=== PATIENT | male | born 1955 | race African-American/Black ===

== ENCOUNTER 2017-02-01 12:23 | Emergency (ER) | payer MEDICARE, OTHER ==
[2017-02-01 11:16] LABS: BASOPHILS 0.3 %; BASOPHILS ABSOLUTE 0.02 10/3/uL (0.0-0.16); EOSINOPHILS 4.8 %; EOSINOPHILS ABSOLUTE 0.28 10/3/uL (0.0-0.53); ER CBC TAT 0 Hrs 07 Mins; HEMATOCRIT 31.2 % (40.0-51.0); HEMOGLOBIN 9.9 g/dL (13.6-17.8); IMMATURE GRANULOCYTES 0.2 %; IMMATURE GRANULOCYTES ABSOLUTE 0.01 10/3/uL (0.0-0.11); LYMPHOCYTES 11.8 %; LYMPHOCYTES ABSOLUTE 0.69 10/3/uL (0.67-4.30); MEAN CORPUS HGB CONC 31.7 g/dL (32.0-36.0); MEAN CORPUSCULAR HEMOGLOB 28.5 pg (26.0-34.0); MONOCYTES 9.2 %; MONOCYTES ABSOLUTE 0.54 10/3/uL (0.21-1.20); NEUTROPHILS 73.7 %; PLATELET COUNT 114 10/3/uL (150-400); RBC DISTRIBUTION WIDTH 16.4 % (12.0-16.0); RED CELL COUNT 3.47 10/6/uL (4.7-6.1); WHITE BLOOD CELLS 5.8 10/3/uL (4.5-10.5)
[2017-02-01 11:18] LABS: MANUAL DIFF NO %; MEAN CORPUSCULAR VOLUME 89.9 fL (80-100)
[2017-02-01 11:25] LABS: INTERNATIONAL NORMAL RATI 1.4 UNITS (-); PARTIAL THROMBO TIME 34.4 SEC (22.5-37.2); PROTIME (NOT ORD) 16.6 SEC (12.0-14.5)
[2017-02-01 11:30] LABS: BUN (BLOOD UREA NITROGEN) 13 MG/DL (6-23); CHLORIDE, SERUM 100 MMOL/L (96-112); CO2 (CARBON DIOXIDE) 30 MMOL/L (24-34); GLUCOSE, SERUM 108 MG/DL (60-99); POTASSIUM, SERUM 4.1 MMOL/L (3.5-5.3); SODIUM, SERUM 139 MMOL/L (135-148)
[2017-02-01 11:33] LABS: CALCIUM, SERUM 9.1 MG/DL (8.5-10.4); CHEST PAIN PROFILE TAT 0 Hrs 24 Mins; CREATININE 3.41 MG/DL (0.70-1.30); GFR AFRICAN AMERICAN 21 ML/MIN (>=60); GFR NON AFRICAN AMERICAN 18 ML/MIN (>=60); TROPONIN I 0.07 NG/ML (<0.05)
[~2017-02-01 12:23] MED LIST: ADALAT CC30 MG PO; AFEDITAB30 MG PO; AMB10 PO; APRES10B PO; APRES50 PO; ASAB PO; ATV.5 PO; B COMPLETE PO; BEN25 PO; CAT1 PO; CAT2 PO; CIALIS10 MG PO; COREG12 PO; COREG25 PO; COUMADIN10 MG PO; CRESTOR20 MG PO; CYANO1000T PO; DSS PO; DULCOLAX STOOL100 MG PO; ENDOCET1 TAB PO; EPOGEN10000 MG/M IV; EPOGEN4000 MG/ML IV; FERRLECIT IV; FERROUS SULF324 MG PO; FOLIC ACI; HECTOROL4 MCG/2 ML IV; HYDRALAZINE100 MG PO; INTEGRA F; IRON; IRON TABLETS PO; IRON325 MG PO; L20 PO; L40 PO; LEVAQUIN750 MG PO; LIPITOR20 PO; LIPITOR40 PO; LISINOPRIL40 MG PO; LONITEN10 PO; LONITEN2.5 PO; LYRICA25 PO; LYRICA50 PO; MEG40 PO; MEGACEUDL PO; MELATONIN5 M1 PO; NEO-SYNEPHRI0.05 % NAS; NEO-SYNEPHRINE15 ML NAS; NEPHRO PO; NEPHRO-VITE PO; NEUR100 PO; NICODERM C21 MG/241 TOP; NITROQUICK0.4 MG SL; NORCO1 TA1 PO; NORV5 PO; NTG150 SL; PAX10 PO; PEGASYS180 MCG/M SC; PEP20 PO; PR25 PO; PRILO PO; PRILOSEC40 MG PO; PRIN20 PO; PROTONIX PO; PT TAKES NO MEDS; RENA-VITE PO; RENAL SFTGLS1 MG OR; RENVELA800 MG PO; RIBASPHERE200 M1 PO; SENSIPAR30 M1 PO; SENSIPAR60 MG PO; SEROQUEL25 PO; SEROQUEL50 MG PO; SEVE800T PO; SLEEP AID PO; SODBICAR10 PO; SPS SUSPENSION PO; TRAZ50 PO; V5 PO; VALIUM10 MG PO; VICODINTAB PO; VITAMIN B-121000 MC1 SL; VITAMIN B-625 MG PO; VITAMIN D1000 UNI1 PO; VITAMIN D31000 UNIT PO; Vitamin D3 PO; ZESTRIL20 MG PO; [UNRECOGNIZED DRUG - OTHER]
[2017-02-07] MEDS ORDERED: PRILOSEC40 MG PO (08:37)
[2017-02-07] MEDS ORDERED: SENSIPAR60 MG PO (08:38)
[2017-02-07] MEDS ORDERED: TRAZ50 PO (08:38)
[2017-02-08] MEDS ORDERED: ASAB PO (08:16)
[2017-02-08] MEDS ORDERED: RENAL SFTGLS1 MG PO (08:17)
[2017-02-08] MEDS ORDERED: LIPITOR20 PO (08:18)
[2017-02-08] MEDS ORDERED: PRIN20 PO ×2 (08:18→08:19)
[2017-02-13] MEDS ORDERED: ROCALTROL0.25 MCG PO (15:14)
[2017-06-12] MEDS ORDERED: JANTOVEN1 MG PO (12:19)
[2017-06-12] MEDS ORDERED: DSS PO (12:19)
[2017-06-12] MEDS ORDERED: KRISTALOSE20 GM PO (12:20)
[2017-06-12] MEDS ORDERED: PROTONIX PO (12:20)
[2017-06-12] MEDS ORDERED: PR25 PO (12:20)
[2017-06-13] MEDS ORDERED: TUMSROLL PO (05:55)
== END 2017-02-01 20:27 | disposition home or self-care (01) ==
LOC: ER 12:23
PROVIDERS: Emergency Medicine
DX: I49.9 Cardiac arrhythmia, unspecified (principal); J44.9 Chronic obstructive pulmonary disease, unspecified; N18.9 Chronic kidney disease, unspecified; I12.9 Hypertensive chronic kidney disease with stage 1 through stage 4 chronic kidney disease, or unspecified chronic kidney disease; E11.9 Type 2 diabetes mellitus without complications; Z87.891 Personal history of nicotine dependence; Z79.82 Long term (current) use of aspirin; Z79.899 Other long term (current) drug therapy
CPT/HCPCS: 80048; 83735; 84484; 85025; 85610; 85730; 93005; 96374; 99285

== ENCOUNTER 2017-02-21 07:18 | Observation (INO) | payer MEDICARE, OTHER, SELFPAY ==
--- NOTE | ~2017-02-21 | OP ---
Record Of Operation [facility] [address] [place]. [address] NAME: BARBARA SHOOK : 51 STATUS : DIS Jyoti PAT#: [id number] AGE: 61 ADM/REG DATE : 02/21/17 MR#: [id number] REPORT SERV DATE: 02/22/17 DICTATED BY: CLARK RICHMOND DATE: 02/22/17 REPORT STATUS : Draft TRANSCRIBED BY: MODL DATE: 02/22/17 DATE OF PROCEDURE: 02/22/2017 PREOPERATIVE DIAGNOSES: 1. Multiple carious teeth. 2. Periodontally involved teeth. 3. Pre mitral valve replacement extractions. POSTOPERATIVE DIAGNOSES: 1. Multiple carious teeth. 2. Periodontally involved teeth. 3. Pre mitral valve replacement extractions. PROCEDURES PERFORMED: Extraction of carious teeth numbers 22, 23, 24, 25, 26, 27, 28, and 31. SURGEON: Clark Richmond D.D.S. ANESTHESIA: GETA with oral DAVID. INDICATIONS: This is a 61-year-old male, who was admitted through the cardiac services for history of hypertension, coronary artery disease, end-stage renal disease, and mitral regurgitation. The patient is on a list to have a mitral valve replacement in the near future. Prior to him receiving this valve, the Cardiac Services requested he have all of his infected carious teeth removed. PROCEDURE IN DETAIL: After informed consent was given, the patient was taken to the OR at [facility] where he underwent a general anesthetic via an orotracheal intubation. The patient was prepped and draped in normal sterile fashion for procedure of this type. Approximately 2 g of Ancef were delivered intravenously along with 8 mg of Decadron. The patient had approximately 10 mL of 1% lidocaine with 1:100,000 epinephrine injected into the areas of extraction. A 15 blade was used to make a flap in the mucosa. It was reflected back. The teeth numbers 22 through 28 and #31 were all extracted with forceps. The bone was trimmed with a rongeur. A bone filed with a bone rasp. All the extraction sites had Surgicel packed inside of them and the mucosa was closed with 3-0 chromic gut suture in a running, interlocking fashion. Estimated blood losswas 10 mL. The patient tolerated the procedure well. He had an orogastric tube placed and removed to remove any stomach contents. Moist packing was placed on both sides of his mouth. The patient was extubated and taken to recovery room in stable condition. GEGE/MARIANNA Clark Richmond D.D.S. Record Of [address] [address] NAME: BARBARA SHOOK NICOLE : 51 STATUS : DIS Jyoti PAT#: [id number] AGE: 61 ADM/REG DATE : 02/21/17 MR#: [id number] REPORT SERV DATE: 02/22/17 DICTATED BY: CLARK RICMHOND DATE: 02/22/17 REPORT STATUS : Draft TRANSCRIBED BY: MARIANNA DATE: 02/22/17 / [id number] CC: MD Celestina Ho M.D.
--- NOTE | ~2017-02-21 | HP ---
History And Physical [place] [id number] [place]. [address] NAME: BABRARA SHOOK : 51 STATUS : ADM IN [facility]#: [id number] AGE: 61 ADM/REG DATE : 02/21/17 MR#: [id number] REPORT SERV DATE: 02/21/17 DICTATED BY: PARISA FITZPATRICK DATE: 02/21/17 REPORT STATUS : Draft TRANSCRIBED BY: MODL DATE: 02/21/17 DATE OF ADMISSION: 02/21/2017 REASON FOR ADMISSION: Symptomatic mitral regurgitation. HISTORY OF PRESENT ILLNESS: This is a pleasant 61-year-old male, who has a history of ventricular tachycardia, status post AICD in 11/2015, also with a history of coronary artery disease and nonischemic congestive cardiomyopathy with nonrheumatic mitral regurgitation, hyperlipidemia, hypertension, and type 2 diabetes mellitus. He also has end-stage renal disease, on hemodialysis on Saturday, Saturday, and Saturday. He was initially referred to us by Dr. Osmel Ashford for symptomatic mitral regurgitation and known coronary artery disease. He was seen in the clinic by Dr. Tyler Watt on 01/29/2017 and preparations were made to have him scheduled for mitral valve repair and replacement surgery. He was brought in today to have this surgery done and was noted to have multiple dental caries and possible abscess tooth with complaint of right-sided jaw pain. His surgery was canceled and the patient will be admitted for evaluation of dental caries and possible abscessed teeth. He will need these extracted prior to proceeding with mitral valve surgery. PAST MEDICAL HISTORY: Ventricular tachycardia, status post cardiac defibrillator, coronary artery disease, nonocclusive per catheterization in 11/2005, nonischemic congestive cardiomyopathy with ejection fraction around 33% per echocardiogram in 09/2016, non- rheumatic mitral regurgitation, severe per echo in 09/2016, hyperlipidemia, hypertension, hypertensive cardiomyopathy, type 2 diabetes mellitus, end-stage renal disease, GERD, renal osteodystrophy, and anemia. SOCIAL HISTORY: He is . Denies any history of alcohol abuse, use of illicit drugs, or tobacco abuse. FAMILY HISTORY: Reviewed and noncontributory. ALLERGIES: NO KNOWN DRUG ALLERGIES. HOME MEDICATIONS: Coreg 25 mg p.o. twice a day, hydralazine 50 mg p.o. twice a day, Megace 5 mL every day, Neurontin 100 mg p.o. at bedtime, Norvasc 5 mg p.o. daily, Prilosec 40 mg per day, Renvela 1600 mg p.o. with meals, Sensipar 60 mg p.o. twice a day with food, sodium bicarbonate 650 mg as directed, trazodone 50 mg p.o. one to three times per day. REVIEW OF SYSTEMS: A 10-point review of systems was obtained and is negative other than HPI. PHYSICAL EXAMINATION: VITAL SIGNS: From today, temperature 98.6, heart rate 67, blood pressure 138/72, respiratory rate 16, O2 saturation 96% on 2L. GENERAL: Pleasant, ill-appearing, male, in no acute distress. History And Physical [address] [address] NAME: BARBARA SHOOK : 51 STATUS : ADM IN [facility]#: [id number] AGE: 61 ADM/REG DATE : 02/21/17 MR#: [id number] REPORT SERV DATE: 02/21/17 DICTATED BY: PARISA FITZPATRICK DATE: 02/21/17 REPORT STATUS : Draft TRANSCRIBED BY: MARIANNA DATE: 02/21/17 NEURO: Alert and oriented x3. Pupils are equal, round, reactive to light and accommodation. He has equal strength bilaterally of upper extremities and lower extremities. PSYCH: He is calm, demeanor, but a little irritated due to the fact that he is now having to be admitted and surgery is being canceled. Otherwise, normal psych assessment. HEENT: Head is normocephalic, atraumatic. Sclerae clear. Nose is midline with no abnormality. Ears midline with no abnormality. He has multiple missing teeth and rotted teeth with dental caries. There is an area that is concerning for abscess in the lower portion of his right mouth. NECK: Supple. No thyromegaly or lymphadenopathy. LUNGS: Clear to auscultation bilaterally with normal effort. CARDIAC: S1, S2. No murmurs, rubs, or gallops. EXTREMITIES: Free of cyanosis, clubbing, or edema. He has a fistula in his right upper extremity with positive bruit. LABORATORY DATA: From today, sodium 138, potassium 4.4, chloride 100, bicarbonate 23, BUN 26, creatinine 6.2, glucose 79. He had an MRSA swab by PCR, which was positive. ASSESSMENT/PLAN: This 61-year-old, male with symptomatic mitral regurgitation, calculated as severe mitral regurgitation per echocardiogram in 09/2016. He also has nonocclusive coronary artery disease, nonischemic cardiomyopathy, and end-stage renal disease on hemodialysis. He was brought in today to undergo mitral valve repair or replacement, found to have multiple dental caries, and possible abscessed tooth. He will need to be evaluated by oral surgeon and undergo tooth extraction prior to proceeding with mitral valve surgery. We will admit him and notify our Renal at his admission. We will also notify Cardiology and ask Dr. Malik to evaluate him for possible dental extraction. We appreciate the help with the consultants. We will likely proceed with mitral valve surgery sometime next week. JACKIE/MARIANNA Parisa Fitzpatrick NP / [id number] CC: MD Celestina Ho M.D.
--- NOTE | ~2017-02-21 | CN ---
Consultation Report [facility] [address] [place]. [address] NAME: BARBARA SHOOK : 51 STATUS : ADM IN PAT#: [id number] AGE: 61 ADM/REG DATE : 02/21/17 MR#: [id number] REPORT SERV DATE: 02/21/17 DICTATED BY: SANDRA ARCOS DATE: 02/21/17 REPORT STATUS : Draft TRANSCRIBED BY: MODL DATE: 02/21/17 NEPHROLOGY CONSULTATION DATE OF CONSULTATION: 02/21/2017 INDICATION FOR CONSULTATION: End-stage renal disease management. HISTORY OF PRESENT ILLNESS: Mr. Shook is a 61-year-old male on chronic hemodialysis on Saturday, Saturday, and Saturday at [facility] by right upper extremity AV fistula. He is currently admitted for mitral valve replacement, but the surgery has been postponed to arrange for full-mouth dental extraction due to poor oral hygiene and caries. There was a concern that he will cede his valve if this is not addressed prior to surgery. He otherwise indicates he is having no problems. PAST MEDICAL HISTORY: 1. End-stage renal disease, dialyzing Saturday, Saturday, and Saturday at [facility] by right upper extremity AVF. 2. Severe mitral regurgitation. 3. Chronic systolic and diastolic CHF. Ejection fraction 20% to 30%. 4. History of hepatitis C. 5. Type 2 diabetes mellitus. 6. Chronic obstructive pulmonary disease. 7. Anemia. 8. Hypertension. 9. History of ventricular tachycardia, status post AICD. 10.Nonobstructive coronary artery disease in 2013, cardiac cath. 11.History of colon polyps. 12.Hyperlipidemia. 13.Peripheral neuropathy. SOCIAL HISTORY: The patient is . He has chronic tobacco use. Indicates he is not smoking now. He is a retired solid waste truck driver. No use of alcohol. Denies illicit drugs. ALLERGIES: NONE KNOWN. MEDICATIONS: Amlodipine, Catapres, Coreg, Colace, Neurontin, Prinivil, Megace, Prilosec, Paxil, Renvela, sodium bicarbonate, and Desyrel. REVIEW OF SYSTEMS: HEENT: No change in visual acuity. No epistaxis. No otic infection. PULMONARY: Denies shortness of breath, cough, or hemoptysis. CARDIAC: No chest pain. No lower extremity edema. GASTROINTESTINAL: No nausea, vomiting, or melena. GENITOURINARY: No gross hematuria. Consultation Report [facility] [address] [place]. [address] NAME: BARBARA SHOOK : 51 STATUS : ADM IN PAT#: [id number] AGE: 61 ADM/REG DATE : 02/21/17 MR#: [id number] REPORT SERV DATE: 02/21/17 DICTATED BY: SANDRA ARCOS DATE: 02/21/17 REPORT STATUS : Draft TRANSCRIBED BY: MARIANNA DATE: 02/21/17 MUSCULOSKELETAL: Pain in back and knees. INTEGUMENT: Bumps on the back. Prior history of scalp Staph infection. NEUROLOGIC: Positive for peripheral neuropathy. Otherwise negative for 12-point review of systems. PHYSICAL EXAMINATION: GENERAL: Pleasant male, alert, and cooperative. VITAL SIGNS: Blood pressure 132/66, temperature 98.4, respiratory rate 19, and pulse 65. HEENT: Eyes: No scleral icterus. Pupils are equal and reactive to light. Extraocular movement intact. Nares patent, no lesions. Throat: No injection. Mucous membranes moist. NECK: No thyromegaly, masses, or bruits. CHEST/LUNGS: Few late crackles posteriorly. No dullness. CARDIAC: Regular rate and rhythm. 2/6 systolic ejection murmur. No gallop. No rub. ABDOMEN: Supple. Normoactive bowel sounds. Nontender. No hepatosplenomegaly. GENITOURINARY/RECTAL: Not performed. EXTREMITIES: No lower extremity edema. No calf tenderness. DERMIS: There are some skin lesions on his back. No other rash. NEUROLOGIC: Cranial nerves intact. No lateralizing weakness. MUSCULOSKELETAL: No deformity. IMPRESSION: 1. Diffuse severe mitral regurgitation. Surgery to be postponed due to need for extraction of teeth. Has upper dentures. Will need lower extraction. 2. End-stage renal disease, dialyzing Saturday, Saturday, and Saturday at [facility] via right upper extremity AVF. 3. Chronic systolic and diastolic congestive heart failure with ejection fraction of 20% to 30%. 4. Hepatitis C. 5. Type 2 diabetes mellitus. 6. Chronic obstructive pulmonary disease. 7. With history of past tobacco abuse. 8. Anemia. 9. Hypertension. 10.History of ventricular tachycardia, status post AICD. 11.Colon polyps. 12.Hyperlipidemia. 13.Peripheral neuropathy. 14.History of nonobstructive coronary artery disease. PLAN: 1. Labs. 2. Hemodialysis . Consultation Report [place] [id number] [place] [address] NAME: BARBARA SHOOK : 51 STATUS : ADM IN [facility]#: [id number] AGE: 61 ADM/REG DATE : 02/21/17 MR#: [id number] REPORT SERV DATE: 02/21/17 DICTATED BY: SANDRA ARCOS DATE: 02/21/17 REPORT STATUS : Draft TRANSCRIBED BY: MARIANNA DATE: 02/21/17 CARMEL/MARIANNA Sandra Arcos M.D. / [id number] CC: MD Celestina Ho M.D.
--- NOTE | ~2017-02-21 | CN ---
Consultation Report [facility] [address] [place]. [address] NAME: BARBARA SHOOK : 51 STATUS : ADM IN PAT#: [id number] AGE: 61 ADM/REG DATE : 02/21/17 MR#: [id number] REPORT SERV DATE: 02/21/17 DICTATED BY: KASSANDRA SOLANO DATE: 02/21/17 REPORT STATUS : Draft TRANSCRIBED BY: MODL DATE: 02/21/17 CARDIOLOGY CONSULT DATE OF CONSULTATION: REFERING REASON: Resuming Cardiology care for anticipated mitral surgery. HISTORY OF PRESENT ILLNESS: This is a pleasant 61-year-old gentleman with a complex past medical history, well known to Dr. Osmel Ashford from [facility], who is pending mitral valve surgery for severe mitral valve regurgitation, mixed mitral valve disease. Surgery was initially planned for today, but it has been cancelled while he was found to have tooth ache and severe cavities in his teeth. He is awaiting first treatment and possible surgery by Dr. Espinal, oromaxillary surgeon. The mitral valve surgery had been postponed until next week. The patient has known CAD with last coronary arteriogram in 11/2015, which revealed moderate left main coronary artery of about 40% to 50% with moderate diffuse disease. He has cardiomyopathy with EF 35%, status post AICD in place for ventricular tachycardia without any recent discharges. He has been previously followed by cardiologists at [place]. He has mixed mitral valve disease with severe mitral valve regurgitation which has been confirmed by [facility] in December [address] Egan. He is also on chronic hemodialysis for end-stage renal disease. The patient has a poor functional performance status. He is walking with a cane. Has some chronic dyspnea on exertion, but denies any chest pain, palpitation, syncope, or lower extremity edema. He is on hemodialysis. He continues to smoke few cigarettes a day. REVIEW OF SYSTEMS: Rest of review of system is negative. PAST MEDICAL HISTORY: 1. Coronary artery disease. His last coronary arteriogram in 11/2015 with moderate disease. 2. Status post AICD placement in November 2015 without any recent discharges and cardiomyopathy with EF 35%. 3. Severe mitral valve regurgitation with a pending surgery. 4. Mixed disease. 5. Hyperlipidemia. 6. Hypertension. 7. Diabetes mellitus. 8. End-stage renal disease, on hemodialysis. 9. Gastroesophageal reflux disease. SOCIAL HISTORY: The patient is . He is retired. He is walking with a cane. Still smokes two to three cigarettes a day for many years. Denies drinking alcohol or using street drugs. Consultation Report [place] [id number] [place]. [address] NAME: BARBARA SHOOK : 51 STATUS : ADM IN PAT#: [id number] AGE: 61 ADM/REG DATE : 02/21/17 MR#: [id number] REPORT SERV DATE: 02/21/17 DICTATED BY: KASSANDRA SOLANO DATE: 02/21/17 REPORT STATUS : Draft TRANSCRIBED BY: MARIANNA DATE: 02/21/17 FAMILY HISTORY: Negative for sudden cardiac or premature coronary artery disease in the family. HOME MEDICATIONS: Amlodipine 5 mg once a day, aspirin 81 mg once a day, atorvastatin 20 mg once a day, calcitriol 0.25 mcg once a day, Coreg 25 mg twice a day, Sensipar 60 mg twice a day, Neurontin 100 mg once a day, hydralazine 50 mg twice a day, lisinopril 20 mg twice a day, Megace, omeprazole 40 mg once a day, Renvela 1600 mg three times a day, sodium bicarbonate twice a day 650 mg, trazodone 100 mg once a day. ALLERGIES: NO KNOWN DRUG ALLERGIES. PHYSICAL EXAMINATION: GEN - No acute distress. VITAL SIGNS: Blood pressure 132/65, heart rate 65 regular. HEENT - Pupils reactive to light and accommodation. Moist mucosa membrane. NECK - No JVD. Normal carotid upstroke. No carotid bruits. LUNGS - Decreased breath sounds bibasilar, but no crackles. COR - Normal S1, S2. No S3 or S4. No significant rub or murmurs. ABD - Obese, distended, and nontender. AICD in place noted in his chest. EXT - Lower extremity decreased pedal pulses bilaterally, but no edema. SKIN - Warm with normal turgor. MS - No kyphosis. NEURO/PSY - Alert and oriented. Nonfocal. LAB DATA: Creatinine of 6.2, BUN 26. CBC is pending. Chest x-ray on 02/19/2017 revealed cardiomegaly with AICD in place with some mild venous congestion. On monitor, he remains in normal sinus rhythm. ASSESSMENT AND PLAN: 1. Toothache with reported teeth cavities with pending teeth procedure, possible surgery. 2. Severe mitral valve regurgitation of mixed mitral valve disease with a pending mitral valve surgery. 3. Cardiomyopathy with EF of 35%. 4. ICD in place. 5. History of coronary artery disease, currently stable the patient is stable from cardiovascular standpoint. He will have evaluation by Dr. Espinal, oromaxillary surgeon tomorrow with hemodialysis tomorrow. Likely early next week, he will undergo mitral valve surgery by Dr. Watt. We will continue current cardiac medication. Dr. Osmel Ashford will see the patient tomorrow. JAIME/MARIANNA Kassandra Edmondson Consultation Report [address] [address] NAME: BARBARA SHOOK : 51 STATUS : ADM IN PAT#: [id number] AGE: 61 ADM/REG DATE : 02/21/17 MR#: [id number] REPORT SERV DATE: 02/21/17 DICTATED BY: KASSANDRA SOLANO DATE: 02/21/17 REPORT STATUS : Draft TRANSCRIBED BY: MARIANNA DATE: 02/21/17 Wilfredo Solano / [id number] CC: MD Celestina Ho M.D.
[~2017-02-21 07:18] MED LIST changes: +RENAL SFTGLS1 MG PO; +ROCALTROL0.25 MCG PO
[2017-02-21 08:49] LABS: A/G RATIO 0.9 (0.7-1.9); ALKALINE PHOSPHATASE 114 U/L (45-117); BUN (BLOOD UREA NITROGEN) 26 MG/DL (6-23); CALCIUM, SERUM 8.9 MG/DL (8.5-10.4); CHLORIDE, SERUM 100 MMOL/L (96-112); CO2 (CARBON DIOXIDE) 23 MMOL/L (24-34); CREATININE 6.23 MG/DL (0.70-1.30); GFR AFRICAN AMERICAN 10 ML/MIN (>=60); GFR NON AFRICAN AMERICAN 9 ML/MIN (>=60); GLOBULIN 4.3 G/DL (2.5-4.1); GLUCOSE, SERUM 79 MG/DL (60-99); IRON BINDING CAPACITY 409 MCG/DL (250-450); POTASSIUM, SERUM 4.4 MMOL/L (3.5-5.3); SGOT(AST) 11 U/L (5-40); SGPT(ALT) 10 U/L (5-65); SODIUM, SERUM 138 MMOL/L (135-148); TOTAL BILIRUBIN 0.9 MG/DL (0-1.2); TOTAL PROTEIN 8.3 G/DL (6.0-8.5)
[2017-02-22 05:14] LABS: BASOPHILS 0.4 %; BASOPHILS ABSOLUTE 0.02 10/3/uL (0.0-0.16); EOSINOPHILS 5.7 %; EOSINOPHILS ABSOLUTE 0.32 10/3/uL (0.0-0.53); HEMOGLOBIN 10.2 g/dL (13.6-17.8); IMMATURE GRANULOCYTES 0.2 %; IMMATURE GRANULOCYTES ABSOLUTE 0.01 10/3/uL (0.0-0.11); LYMPHOCYTES 19.5 %; MEAN CORPUS HGB CONC 32.1 g/dL (32.0-36.0); MEAN CORPUSCULAR HEMOGLOB 29.5 pg (26.0-34.0); MONOCYTES 8.7 %; MONOCYTES ABSOLUTE 0.49 10/3/uL (0.21-1.20); NEUTROPHILS 65.5 %; PLATELET COUNT 102 10/3/uL (150-400); RBC DISTRIBUTION WIDTH 17.2 % (12.0-16.0); RED CELL COUNT 3.46 10/6/uL (4.7-6.1); WHITE BLOOD CELLS 5.6 10/3/uL (4.5-10.5)
[2017-02-22 05:18] LABS: HEMATOCRIT 31.8 % (40.0-51.0); MANUAL DIFF NO %; MEAN CORPUSCULAR VOLUME 91.9 fL (80-100)
[2017-02-22 05:27] LABS: ALBUMIN 3.4 G/DL (3.5-5.0); CALCIUM, SERUM 8.2 MG/DL (8.5-10.4); CHLORIDE, SERUM 102 MMOL/L (96-112); CO2 (CARBON DIOXIDE) 23 MMOL/L (24-34); GLUCOSE, SERUM 92 MG/DL (60-99); POTASSIUM, SERUM 4.8 MMOL/L (3.5-5.3); SODIUM, SERUM 138 MMOL/L (135-148)
[2017-02-22 05:32] LABS: BUN (BLOOD UREA NITROGEN) 39 MG/DL (6-23); CREATININE 8.08 MG/DL (0.70-1.30); GFR AFRICAN AMERICAN 7 ML/MIN (>=60); GFR NON AFRICAN AMERICAN 6 ML/MIN (>=60); PHOSPHORUS, SERUM 5.5 MG/DL (2.5-4.5)
[2017-02-22] MEDS ORDERED: AMOXIL500 MG PO (18:21)
[2017-02-22] MEDS ORDERED: PERCOCET 10/3251 TAB PO (18:22)
[2017-02-22] MEDS ORDERED: HABIT21 TOP (18:22)
[2017-06-12] MEDS ORDERED: DSS PO (12:19)
[2017-06-12] MEDS ORDERED: JANTOVEN1 MG PO (12:19)
[2017-06-12] MEDS ORDERED: PROTONIX PO (12:20)
[2017-06-12] MEDS ORDERED: KRISTALOSE20 GM PO (12:20)
[2017-06-12] MEDS ORDERED: PR25 PO (12:20)
[2017-06-13] MEDS ORDERED: TUMSROLL PO (05:55)
== END 2017-02-22 19:28 | disposition home or self-care (01) ==
LOC: SDC/OF 07:18 → 5NO 15:25
PROVIDERS: Internal Medicine Nephrology; Oral & Maxillofacial Surgery; Thoracic Surgery (Cardiothoracic Vascular Surgery)
PROC: 0CDXXZ1 Extraction of Lower Tooth, Multiple, External Approach (ICD-10-PCS; principal; 2017-02-22 13:45)
DX: K02.9 Dental caries, unspecified (principal); I13.2 Hypertensive heart and chronic kidney disease with heart failure and with stage 5 chronic kidney disease, or end stage renal disease; E11.22 Type 2 diabetes mellitus with diabetic chronic kidney disease; N18.6 End stage renal disease; I34.0 Nonrheumatic mitral (valve) insufficiency; I25.10 Atherosclerotic heart disease of native coronary artery without angina pectoris; E78.2 Mixed hyperlipidemia; I50.22 Chronic systolic (congestive) heart failure; I47.2 Ventricular tachycardia; K21.9 Gastro-esophageal reflux disease without esophagitis; I49.8 Other specified cardiac arrhythmias; N25.0 Renal osteodystrophy; D64.9 Anemia, unspecified; F17.210 Nicotine dependence, cigarettes, uncomplicated; Z79.899 Other long term (current) drug therapy; Z79.82 Long term (current) use of aspirin
CPT/HCPCS: 71020; 80053; 80069; 82962; 83550; 83735; 85025; 86920; 87641; 94640; A9270-GY; G0257; G0378; J0690; J1170; J2250; J2405; J2710; J3010; J3370; P9045; P9047

== ENCOUNTER 2017-03-07 04:41 | Inpatient (IN) | payer MEDICARE, OTHER ==
--- NOTE | ~2017-03-07 | DS ---
Discharge Summary [facility] [address] [place]. [address] NAME: BARBARA SHOOK : 51 STATUS : DIS IN PAT#: [id number] AGE: 61 ADM/REG DATE : 03/07/17 MR#: [id number] REPORT SERV DATE: 03/26/17 DICTATED BY: TYLER SANCHES DATE: 03/25/17 REPORT STATUS : Draft TRANSCRIBED BY: MODSerafin DATE: 03/25/17 Data Collection from hospitalization DISCHARGE DIAGNOSES: 1. Mitral regurgitation, status post mitral valve repair. 2. End-stage renal disease. 3. Type 2 diabetes mellitus. 4. Hypertension. 5. Hyperlipidemia. CONSULTATIONS: 1. Fabian Isidro M.D. 2. Gavino Damon MD. PROCEDURES PERFORMED: Median sternotomy, extracorporeal circulation, mitral valve replacement with 31 mm Epic Biocor mitral valve, transesophageal echocardiogram, left atrial appendage ligation with 45 mm atrial clip, rigid sternal fixation with Spaces 2 Host SternaLock Woody plating system, Prevena placement, 03/07/2017. PATHOLOGY: Heart valve, anterior mitral valve leaflet - myxoid change. DISCHARGE MEDICATIONS: Cordarone 200 mg twice a day, aspirin 81 mg daily, Lipitor 40 mg at bedtime, Rocaltrol 0.25 mcg daily, Coreg 6.25 mg twice a day, Neurontin 100 mg at bedtime, Megace 10 mL daily as instructed, Prilosec 40 mg at bedtime, Percocet 10/325 one tablet every four hours as needed, Percocet 10/325 one tablet every eight hours as needed, Renvela 1600 mg three times a day with meals, sodium bicarb 650 mg twice a day, Desyrel 100 mg at bedtime. He was instructed not to continue Norvasc, hydralazine, SPS suspension, Sensipar, lisinopril or Amoxil. CONDITION AT DISCHARGE: Stable. DISPOSITION: The patient was discharged home to be followed by home health care on a low- sodium, low-cholesterol, renal-diabetic diet with no concentrated carbohydrates, and activities as instructed. He will follow up with Dr. Osmel Ashford on 03/22/[address] Tyler Sanches on 04/09/2017. HOSPITAL COURSE: This is a 61-year-old man who has a history of ventricular tachycardia and is status post AICD in November 2015. He also has a history of coronary artery disease and nonischemic congestive cardiomyopathy with nonrheumatic mitral regurgitation, hyperlipidemia, hypertension, and type 2 diabetes mellitus. He also has end-stage renal disease and undergoes hemodialysis on Mondays, Wednesdays, and Fridays. He had initially been referred by Dr. Osmel Ashford for symptomatic mitral regurgitation and coronary artery disease. He had been seen by me in the clinic on 01/29/2017, and preparations were made to have him scheduled for mitral valve repair and replacement surgery. He had been brought in on the to undergo this surgery and was found to have multiple dental caries and possible abscess tooth with complaints of right-sided jaw pain. His surgery is being canceled for evaluation of dental caries and possible abscessed teeth. He had undergone dental extractions and was allowed to convalesce and was brought back at this time to undergo Discharge Summary [place] [id number] [facility] [place]. [address] NAME: BARBARA SHOOK : 51 STATUS : DIS IN PAT#: [id number] AGE: 61 ADM/REG DATE : 03/07/17 MR#: [id number] REPORT SERV DATE: 03/26/17 DICTATED BY: TYLER SANCHES DATE: 03/25/17 REPORT STATUS : Draft TRANSCRIBED BY: MARIANNA DATE: 03/25/17 surgical intervention. He was admitted to the hospital for further evaluation and treatment. Upon admission, he was taken to the operating room where he underwent the above-mentioned procedure. He tolerated this well. There were no complications. On postop day #1, he said his pain was tolerable. He did have some nausea. Antiemetics were being given as needed. He was seen by Dr. Fabian Isidro. The patient had tolerated surgery well. He had no new complaints. Creatinine level was 7.50. Hemodialysis therapy was going to be performed. He was also seen by Dr. Gavino Damon. He denied shortness of breath. He had a decreased appetite. He had no other complaints. He was in a normal sinus rhythm. Aspirin was continued. On 03/09/2017, he developed atrial fibrillation with rapid ventricular response after hemodialysis. Amiodarone was being weaned. Heparin drip was started. He had no edema. He was at sitting in a chair and appeared comfortable. The next day, Levophed was being weaned. He had decreased breath sounds in the bases. He had some constipation and nausea but no vomiting. Kayexalate was given. Beta-diaz was held. He was currently in a normal sinus rhythm. He was off the amiodarone drip. On 03/11/2017, he looks good. He was still in atrial flutter. He was still on IV heparin. The next day, he was ambulating in the room. He had no chest pain. He was on fluid restriction for hyponatremia. IV heparin was stopped. INR level was elevated at 2.1. On the , he continued to do well. His Coumadin had been stopped. He complained of feeling weak and nauseated. INR level was 3.9. Over the next couple of days, we encouraged him to increase his mobility. He was in a normal sinus rhythm. Discharge planning was performed. On 03/15/2017, he continued to do well. He was seen on hemodialysis. He was ambulating more. He had no chest pain. Coumadin would be restarted when his INR level was less than or equal to 2. His INR level at this time was 3. Discharge instructions were given. Due to his improved and stable condition, he was discharged home to be followed by home health care with the above-stated instructions. Information collected by: Ileana Brooks I submit the above information as my discharge summary. TG/MODL Tyler Sanches MD / [id number] CC: MD Celestina Ho M.D. John Carter Hemphill, MD Ann H. Rybolt, M.D. Claude Galphin, M.D.
--- NOTE | ~2017-03-07 | OP ---
Record Of Operation [facility] [address]. [address] NAME: BARBARA SHOOK : 51 STATUS : ADM IN PAT#: [id number] AGE: 61 ADM/REG DATE : 03/07/17 MR#: [id number] REPORT SERV DATE: 03/07/17 DICTATED BY: TYLER SANCHES DATE: 03/07/17 REPORT STATUS : Draft TRANSCRIBED BY: MODL DATE: 03/07/17 DATE OF PROCEDURE: 03/07/2017 ATTENDING SURGEON: Tyler Sanches MD. EXERCISER: Ed Portillo. ANESTHESIOLOGIST: Albino Mckeon MD. PREOPERATIVE DIAGNOSES: 1. Severe mitral regurgitation with mixed mitral stenosis. 2. End-stage renal disease, on chronic dialysis. 3. Chronic systolic and diastolic congestive heart failure. 4. Diabetes mellitus type 2. 5. Chronic obstructive pulmonary disease. 6. Anemia. 7. Hypertension. 8. Hyperlipidemia. 9. Nonobstructive coronary artery disease. 10.Ventricular tachycardia. 11.Status post AICD. POSTOPERATIVE DIAGNOSES: 1. Severe mitral regurgitation with mixed mitral stenosis. 2. End-stage renal disease, on chronic dialysis. 3. Chronic systolic and diastolic congestive heart failure. 4. Diabetes mellitus type 2. 5. Chronic obstructive pulmonary disease. 6. Anemia. 7. Hypertension. 8. Hyperlipidemia. 9. Nonobstructive coronary artery disease. 10.Ventricular tachycardia. 11.Status post AICD. OPERATION PROCEDURE PERFORMED: 1. Median sternotomy. 2. Extracorporeal circulation. 3. Mitral valve replacement with 31 mm Epic Biocor mitral valve. 4. CHEYENNE. 5. Left atrial appendage ligation with 45 mm atrial clip. 6. Rigid sternal fixation with Biomet SternaLock Woody plating system. 7. Prevena placement. COMPLICATIONS: None tubes. Record Of Operation [facility] [address] [place]. [address] NAME: BARBARA SHOOK : 51 STATUS : ADM IN PAT#: [id number] AGE: 61 ADM/REG DATE : 03/07/17 MR#: [id number] REPORT SERV DATE: 03/07/17 DICTATED BY: TYLER SANCHES DATE: 03/07/17 REPORT STATUS : Draft TRANSCRIBED BY: MODL DATE: 03/07/17 TUBES AND DRAINS: 19 Moises to posterior pericardium, 32-Pashto straight, under the sternum V wires were placed. The patient has a pre-existing AICD. POSTOPERATIVE CONDITION: Critically stable to CVICU. The patient was weaned on epi and Milrinone. INTRAOPERATIVE FINDINGS: There was a calcified mitral anulus. The posterior leaflet of the mitral valve was partially calcified. The posterior leaflet was restricted and thickened. The anterior leaflet was thickened, I did not think that a valve repair would be suitable for this gentleman. The posterior leaflet and the subvalvular apparatus was preserved. The anterior leaflet was removed and some in that portion of the subvalvular apparatus was excised. There was difficult exposure. The heart was rotated leftward in his chest. The right and left atrium were extremely large. TRANSESOPHAGEAL ECHOCARDIOGRAPHY: Pre EF was approximately 30%. There was severe MR mixed with mitral stenosis postoperatively. The valve was well seated. There was preservation of his wall motion. INDICATIONS FOR PROCEDURE: Mr. Shook is a 61-year-old gentleman, with chronic dialysis, who has a mixed component of mitral stenosis and mitral regurgitation, who presents with chronic systolic and diastolic congestive heart failure, and symptoms consistent of severe mitral regurgitation. He was recently brought to the hospital for attempted mitral valve repair and was found to have rotten teeth, it was felt that he needed to have dental extraction, underwent dental extraction, and was allowed to convalesce from that, and then brought back for mitral valve repair. Risks, benefits, and alternatives were discussed with the patient including, but not limited to, bleeding, infection, stroke, , heart attack, need for future operation, all questions were answered. DETAILS OF PROCEDURE: The patient was brought to the operating room, placed supine on the operating room table. After satisfactory induction of general endotracheal anesthesia, was prepped and draped in usual sterile fashion. Median sternotomy was performed. Skin and subcu tissues were divided. Clavipectoral fascia was divided. The sternum was divided in the midline using a sternal saw. Hemostasis was obtained. The Breathitt sternal retractor was placed. Thymic tissue was divided in the midline up to the innominate vein. The pericardium was opened. A pericardial well was created. Systemic heparinization was achieved. Ascending aorta was cannulated through dual pursestring. Right atrial appendage was cannulated through a sternal pursestring. Antegrade root vent cardioplegia tack was placed. Cardiopulmonary bypass was initiated. After documentation of an adequate ACT, the heart was elevated, and the left atrial appendage was sized. It was sized to a 45 mm atrial clip. The clip was placed around the left atrial appendage and the clip was fired, appeared to be good resolution of the clip. Attention was then turned to the Sondergaard's groove, Sondergaard's groove was developed. The cross-clamp was brought up the heart was arrested with 2 L of cold crystalloid cardioplegia Custodiol solution. The left atriotomy was performed. Self-retaining was placed and the mitral valve was inspected with findings as dictated in the intraoperative findings. The decision was made to replace the valve, 20 pledgeted valve sutures were placed, positioned the valve in the intra annular position. The posterior leaflet was preserved. Anterior leaflet and subvalvular apparatus was Record Of Operation [facility] [address] [facility] [address] [facility] [place]. [address] NAME: BARBARA SHOOK : 51 STATUS : ADM IN [facility]#: [id number] AGE: 61 ADM/REG DATE : 03/07/17 MR#: [id number] REPORT SERV DATE: 03/07/17 DICTATED BY: TYLER SANCHES DATE: 03/07/17 REPORT STATUS : Draft TRANSCRIBED BY: MARIANNA DATE: 03/07/17 removed. After the sutures were placed. The valve was sized to a 31 mm Epic Biocor valve. The sutures were then placed through the sewing ring of the valve. The valve was lowered into position and anchored using 20 Cor-Knots. Edwards was placed across the valve to serve as LV vent and the left atriotomy is closed. The left atriotomy was closed in two layer 3-0 Prolene. De-airing maneuvers were performed and the cross-clamp was removed. Ventricular pacing wires were placed. The patient returned to sinus rhythm. He was able to be weaned from cardiopulmonary bypass without incident. After CHEYENNE demonstrated the valve was well seated and there was no perivalvular leak in prior to coming off bypass, the LV vent was removed and the anastomotic sutures were tied down and the antegrade root vent cardioplegia tack was removed, 4-0 Prolene was used to oversew of this. The patient was then weaned from cardiopulmonary bypass. Protamine was administered. Two units of FFP and six packs of platelets were administered as well. Hemostasis was obtained. All pursestrings were oversewn with 4-0 Prolene. All cannula sites were oversewn with 4-0 Prolene. The pericardium was loosely reapproximated over the RV and the ascending aorta. A 19-Pashto Moises was placed in the posterior pericardial space. A 32-Pashto chest tube was placed under the sternum. These were exteriorized and secured to the skin. The sternum was then reapproximated using eight stainless steel sternal wires. The pectoral flaps were raised to the edge of the sternum and 100 degree SternaLock Woody plate was placed on the body of the manubrium and two X plates were placed on the body of the sternum between the sternal wires. The clavipectoral fascia was reapproximated using running #1 StrataFix. The skin and subcutaneous tissues were closed. The subcutaneous tissues were closed using running #1 StrataFix. The skin closed using 2-0 Quill. Dry sterile dressings were placed. Prevena dressing was placed. The patient was transferred to CVICU in critical, stable condition. [facility]L Tyler Sanches MD / [id number] CC: Tyler aSnches MD
[~2017-03-07 04:41] MED LIST changes: +AMOXIL500 MG PO; +HABIT21 TOP; +PERCOCET 10/3251 TAB PO
[2017-03-07 07:12] LABS: INTERNATIONAL NORMAL RATI 1.2 UNITS (-); PROTIME (NOT ORD) 15.2 SEC (12.0-14.5)
[2017-03-07 07:20] LABS: A/G RATIO 0.8 (0.7-1.9); CHLORIDE, SERUM 97 MMOL/L (96-112); GLUCOSE, SERUM 87 MG/DL (60-99); SGPT(ALT) 7 U/L (5-65); SODIUM, SERUM 134 MMOL/L (135-148); TOTAL BILIRUBIN 1.1 MG/DL (0-1.2)
[2017-03-07 07:23] LABS: ALKALINE PHOSPHATASE 135 U/L (45-117); BUN (BLOOD UREA NITROGEN) 23 MG/DL (6-23); CALCIUM, SERUM 9.2 MG/DL (8.5-10.4); CO2 (CARBON DIOXIDE) 29 MMOL/L (24-34); CREATININE 7.01 MG/DL (0.70-1.30); GFR AFRICAN AMERICAN 9 ML/MIN (>=60); GFR NON AFRICAN AMERICAN 8 ML/MIN (>=60); POTASSIUM, SERUM 4.4 MMOL/L (3.5-5.3)
[2017-03-07 07:24] LABS: SGOT(AST) 20 U/L (5-40)
[2017-03-07 12:46] LABS: TEG - ANGLE 44.5 DEG (53-72); TEG - COAGULATION INDEX -9.2 (-3 TO 3); TEG - LY30 0.1 % (0-8); TEG - MAXIMUM AMPLITUDE 54.6 MM (50-70); TEG - RATE 15.2 MIN (5.0-10.0)
[2017-03-07 13:28] LABS: BE (BASE EXCESS) -3.4 MEQ/L (0 +/- 2.5); CARBOXYHEMOGLOBIN 1.2 % (0-3); HCO3 (ACTUAL BICARBONATE) 21.5 MEQ/L (23-27); HEMOBLOGIN CONTENT 10.9 G/DL (14-18); INSTRUMENT SERIAL # 11843; METHEMOGLOBIN 0.5 % (0-3); MODE SIMV; O2 CONTENT 15.3 VOL% (18-24); OPERATOR ID 35188; PCO2 (CO2 TENSION) 38 MMHG (35-45); PO2 (O2 TENSION) 188 MMHG (79-93); SAMPLE Arterial; TIDAL VOLUME 750 ML; pH 7.37 (7.37-7.43)
[2017-03-07 13:41] LABS: HEMOGLOBIN 9.8 g/dL (13.6-17.8); PLATELET COUNT 149 10/3/uL (150-400)
[2017-03-07 13:48] LABS: INTERNATIONAL NORMAL RATI 1.8 UNITS (-); PARTIAL THROMBO TIME 41.1 SEC (22.5-37.2)
[2017-03-07 13:51] LABS: PROTIME (NOT ORD) 20.4 SEC (12.0-14.5)
[2017-03-07 13:52] LABS: BUN (BLOOD UREA NITROGEN) 24 MG/DL (6-23); CALCIUM, SERUM 8.7 MG/DL (8.5-10.4); CHLORIDE, SERUM 100 MMOL/L (96-112); CO2 (CARBON DIOXIDE) 22 MMOL/L (24-34); GFR AFRICAN AMERICAN 9 ML/MIN (>=60); GFR NON AFRICAN AMERICAN 8 ML/MIN (>=60); GLUCOSE, SERUM 186 MG/DL (60-99); POTASSIUM, SERUM 4.9 MMOL/L (3.5-5.3); SODIUM, SERUM 135 MMOL/L (135-148)
[2017-03-07 14:11] LABS: FIBRINOGEN 300 MG/DL (230-462)
[2017-03-07 18:43] LABS: POTASSIUM, SERUM 4.7 MMOL/L (3.5-5.3)
[2017-03-07 18:47] LABS: HEMATOCRIT 28.8 % (40.0-51.0); HEMOGLOBIN 9.2 g/dL (13.6-17.8)
[2017-03-08 01:48] LABS: HEMATOCRIT 29.1 % (40.0-51.0); HEMOGLOBIN 9.4 g/dL (13.6-17.8)
[2017-03-08 04:51] LABS: HEMATOCRIT 30.1 % (40.0-51.0); HEMOGLOBIN 9.7 g/dL (13.6-17.8); MEAN CORPUS HGB CONC 32.2 g/dL (32.0-36.0); MEAN CORPUSCULAR VOLUME 89.9 fL (80-100); MEAN PLATELET VOLUME 9.9 fL (9.2-13.0); PLATELET COUNT 107 10/3/uL (150-400); RBC DISTRIBUTION WIDTH 16.8 % (12.0-16.0); RED CELL COUNT 3.35 10/6/uL (4.7-6.1)
[2017-03-08 05:00] LABS: CALCIUM, SERUM 8.7 MG/DL (8.5-10.4); CHLORIDE, SERUM 100 MMOL/L (96-112); CO2 (CARBON DIOXIDE) 18 MMOL/L (24-34); GFR AFRICAN AMERICAN 8 ML/MIN (>=60); GFR NON AFRICAN AMERICAN 7 ML/MIN (>=60); GLUCOSE, SERUM 102 MG/DL (60-99); POTASSIUM, SERUM 5.6 MMOL/L (3.5-5.3); SODIUM, SERUM 136 MMOL/L (135-148)
[2017-03-08 05:03] LABS: MANUAL DIFF YES %; WHITE BLOOD CELLS 10.7 10/3/uL (4.5-10.5)
[2017-03-08 05:07] LABS: BUN (BLOOD UREA NITROGEN) 49 MG/DL (6-23)
[2017-03-08 05:18] LABS: INTERNATIONAL NORMAL RATI 1.4 UNITS (-)
[2017-03-08 05:20] LABS: PROTIME (NOT ORD) 16.8 SEC (12.0-14.5)
[2017-03-08 05:38] LABS: ANISOCYTOSIS 1+ (5-10/OIF) (0-5/OIF); BAND NEUTROPHILS 1 %; BURR CELLS 1+ (3-10/OIF) (0-2/OIF); LYMPHOCYTES 7 %; LYMPHOCYTES ABSOLUTE (CALC) 0.75 10/3/uL (0.67-4.30); MONOCYTES 2 %; MONOCYTES ABSOLUTE (CALC) 0.21 10/3/uL (0.21-1.20); NEUTROPHILS ABSOLUTE (CALC) 9.74 10/3/uL (2.02-8.40); PLATELET ESTIMATE DEC (ADEQUATE); POIKILOCYTOSIS 1+ (5-10/OIF) (0-5/OIF); SEGMENTED NEUTROPHIL (0) 90 %; TOTAL NUCLEATED CELLS 100
[2017-03-08 09:46] LABS: BE (BASE EXCESS) -3.1 MEQ/L (0 +/- 2.5); DEVICE NC; HCO3 (ACTUAL BICARBONATE) 22.7 MEQ/L (23-27); HEMOBLOGIN CONTENT 10.3 G/DL (14-18); INSTRUMENT SERIAL # 11843; METHEMOGLOBIN 0.5 % (0-3); O2 CONTENT 13.2 VOL% (18-24); OPERATOR ID 35188; PCO2 (CO2 TENSION) 44 MMHG (35-45); PO2 (O2 TENSION) 72 MMHG (79-93); SAMPLE Arterial; pH 7.33 (7.37-7.43)
[2017-03-08 17:31] LABS: HEMATOCRIT 29.8 % (40.0-51.0); HEMOGLOBIN 9.9 g/dL (13.6-17.8)
[2017-03-08 17:40] LABS: POTASSIUM, SERUM 3.9 MMOL/L (3.5-5.3)
[2017-03-09 03:49] LABS: BASOPHILS 0.1 %; BASOPHILS ABSOLUTE 0.01 10/3/uL (0.0-0.16); EOSINOPHILS 0 %; HEMATOCRIT 29.4 % (40.0-51.0); HEMOGLOBIN 9.6 g/dL (13.6-17.8); IMMATURE GRANULOCYTES 0.5 %; IMMATURE GRANULOCYTES ABSOLUTE 0.06 10/3/uL (0.0-0.11); LYMPHOCYTES 6.1 %; LYMPHOCYTES ABSOLUTE 0.72 10/3/uL (0.67-4.30); MANUAL DIFF NO %; MEAN CORPUS HGB CONC 32.7 g/dL (32.0-36.0); MEAN CORPUSCULAR HEMOGLOB 28.9 pg (26.0-34.0); MEAN CORPUSCULAR VOLUME 88.6 fL (80-100); MEAN PLATELET VOLUME 10.3 fL (9.2-13.0); NEUTROPHILS 82.3 %; NEUTROPHILS ABSOLUTE 9.71 10/3/uL (2.02-8.40); PLATELET COUNT 124 10/3/uL (150-400); RBC DISTRIBUTION WIDTH 16.7 % (12.0-16.0); RED CELL COUNT 3.32 10/6/uL (4.7-6.1); WHITE BLOOD CELLS 11.8 10/3/uL (4.5-10.5)
[2017-03-09 04:01] LABS: ALBUMIN 3.4 G/DL (3.5-5.0); CALCIUM, SERUM 8.5 MG/DL (8.5-10.4); CHLORIDE, SERUM 97 MMOL/L (96-112); GLUCOSE, SERUM 97 MG/DL (60-99); SODIUM, SERUM 134 MMOL/L (135-148)
[2017-03-09 04:02] LABS: BUN (BLOOD UREA NITROGEN) 41 MG/DL (6-23); CO2 (CARBON DIOXIDE) 24 MMOL/L (24-34); CREATININE 6.08 MG/DL (0.70-1.30); GFR AFRICAN AMERICAN 10 ML/MIN (>=60); GFR NON AFRICAN AMERICAN 9 ML/MIN (>=60); PHOSPHORUS, SERUM 4.1 MG/DL (2.5-4.5); POTASSIUM, SERUM 4.7 MMOL/L (3.5-5.3)
[2017-03-09 11:06] LABS: INTERNATIONAL NORMAL RATI 1.6 UNITS (-); PARTIAL THROMBO TIME 36.3 SEC (22.5-37.2); PROTIME (NOT ORD) 19.1 SEC (12.0-14.5)
[2017-03-10 03:35] LABS: CHLORIDE, SERUM 92 MMOL/L (96-112)
[2017-03-10 03:36] LABS: BUN (BLOOD UREA NITROGEN) 56 MG/DL (6-23); CALCIUM, SERUM 7.4 MG/DL (8.5-10.4); CO2 (CARBON DIOXIDE) 18 MMOL/L (24-34); CREATININE 7.52 MG/DL (0.70-1.30); GFR AFRICAN AMERICAN 8 ML/MIN (>=60); GFR NON AFRICAN AMERICAN 7 ML/MIN (>=60); GLUCOSE, SERUM 126 MG/DL (60-99); POTASSIUM, SERUM 5.7 MMOL/L (3.5-5.3); SODIUM, SERUM 127 MMOL/L (135-148)
[2017-03-10 03:38] LABS: BASOPHILS 0.1 %; BASOPHILS ABSOLUTE 0.01 10/3/uL (0.0-0.16); EOSINOPHILS 0.5 %; EOSINOPHILS ABSOLUTE 0.05 10/3/uL (0.0-0.53); HEMATOCRIT 28.7 % (40.0-51.0); HEMOGLOBIN 9.6 g/dL (13.6-17.8); IMMATURE GRANULOCYTES 0.6 %; IMMATURE GRANULOCYTES ABSOLUTE 0.06 10/3/uL (0.0-0.11); LYMPHOCYTES 10.6 %; LYMPHOCYTES ABSOLUTE 1.11 10/3/uL (0.67-4.30); MEAN CORPUS HGB CONC 33.4 g/dL (32.0-36.0); MEAN CORPUSCULAR HEMOGLOB 29.2 pg (26.0-34.0); MEAN CORPUSCULAR VOLUME 87.2 fL (80-100); MEAN PLATELET VOLUME 10.6 fL (9.2-13.0); MONOCYTES 12.1 %; MONOCYTES ABSOLUTE 1.26 10/3/uL (0.21-1.20); NEUTROPHILS 76.1 %; NEUTROPHILS ABSOLUTE 7.95 10/3/uL (2.02-8.40); PLATELET COUNT 116 10/3/uL (150-400); RBC DISTRIBUTION WIDTH 16.4 % (12.0-16.0); RED CELL COUNT 3.29 10/6/uL (4.7-6.1); WHITE BLOOD CELLS 10.4 10/3/uL (4.5-10.5)
[2017-03-10 03:44] LABS: PARTIAL THROMBO TIME 66.2 SEC (22.5-37.2)
[2017-03-10 03:48] LABS: MANUAL DIFF NO %
[2017-03-11 05:32] LABS: BASOPHILS 0.1 %; BASOPHILS ABSOLUTE 0.01 10/3/uL (0.0-0.16); EOSINOPHILS 1.5 %; EOSINOPHILS ABSOLUTE 0.15 10/3/uL (0.0-0.53); HEMOGLOBIN 9.4 g/dL (13.6-17.8); IMMATURE GRANULOCYTES 0.4 %; IMMATURE GRANULOCYTES ABSOLUTE 0.04 10/3/uL (0.0-0.11); LYMPHOCYTES 10.1 %; LYMPHOCYTES ABSOLUTE 0.99 10/3/uL (0.67-4.30); MEAN CORPUS HGB CONC 33.6 g/dL (32.0-36.0); MEAN CORPUSCULAR HEMOGLOB 28.3 pg (26.0-34.0); MEAN PLATELET VOLUME 10.9 fL (9.2-13.0); MONOCYTES 9.8 %; MONOCYTES ABSOLUTE 0.96 10/3/uL (0.21-1.20); NEUTROPHILS 78.1 %; NEUTROPHILS ABSOLUTE 7.66 10/3/uL (2.02-8.40); PLATELET COUNT 117 10/3/uL (150-400); RBC DISTRIBUTION WIDTH 16.2 % (12.0-16.0); RED CELL COUNT 3.32 10/6/uL (4.7-6.1); WHITE BLOOD CELLS 9.8 10/3/uL (4.5-10.5)
[2017-03-11 05:36] LABS: MANUAL DIFF NO %; MEAN CORPUSCULAR VOLUME 84.3 fL (80-100)
[2017-03-11 05:44] LABS: CHLORIDE, SERUM 92 MMOL/L (96-112); CO2 (CARBON DIOXIDE) 17 MMOL/L (24-34); GLUCOSE, SERUM 128 MG/DL (60-99); PHOSPHORUS, SERUM 4.8 MG/DL (2.5-4.5); POTASSIUM, SERUM 5.3 MMOL/L (3.5-5.3); SODIUM, SERUM 125 MMOL/L (135-148)
[2017-03-11 05:47] LABS: INTERNATIONAL NORMAL RATI 1.8 UNITS (-); PROTIME (NOT ORD) 20.9 SEC (12.0-14.5)
[2017-03-11 05:48] LABS: PARTIAL THROMBO TIME 91.1 SEC (22.5-37.2)
[2017-03-11 05:54] LABS: BUN (BLOOD UREA NITROGEN) 76 MG/DL (6-23); CALCIUM, SERUM 6.8 MG/DL (8.5-10.4); CREATININE 8.57 MG/DL (0.70-1.30); GFR AFRICAN AMERICAN 7 ML/MIN (>=60); GFR NON AFRICAN AMERICAN 6 ML/MIN (>=60)
[2017-03-12 05:24] LABS: INTERNATIONAL NORMAL RATI 2.1 UNITS (-); PROTIME (NOT ORD) 23.3 SEC (12.0-14.5)
[2017-03-12 05:27] LABS: BASOPHILS 0.1 %; BASOPHILS ABSOLUTE 0.01 10/3/uL (0.0-0.16); EOSINOPHILS 3.3 %; EOSINOPHILS ABSOLUTE 0.22 10/3/uL (0.0-0.53); HEMATOCRIT 26.8 % (40.0-51.0); HEMOGLOBIN 8.9 g/dL (13.6-17.8); IMMATURE GRANULOCYTES 0.6 %; IMMATURE GRANULOCYTES ABSOLUTE 0.04 10/3/uL (0.0-0.11); LYMPHOCYTES 7.9 %; LYMPHOCYTES ABSOLUTE 0.53 10/3/uL (0.67-4.30); MEAN CORPUS HGB CONC 33.2 g/dL (32.0-36.0); MEAN CORPUSCULAR HEMOGLOB 28.6 pg (26.0-34.0); MEAN CORPUSCULAR VOLUME 86.2 fL (80-100); MEAN PLATELET VOLUME 10.5 fL (9.2-13.0); MONOCYTES 12.4 %; MONOCYTES ABSOLUTE 0.83 10/3/uL (0.21-1.20); NEUTROPHILS 75.7 %; NEUTROPHILS ABSOLUTE 5.08 10/3/uL (2.02-8.40); PLATELET COUNT 107 10/3/uL (150-400); RBC DISTRIBUTION WIDTH 16.3 % (12.0-16.0); RED CELL COUNT 3.11 10/6/uL (4.7-6.1); WHITE BLOOD CELLS 6.7 10/3/uL (4.5-10.5)
[2017-03-12 05:28] LABS: MANUAL DIFF NO %
[2017-03-12 05:41] LABS: ALBUMIN 3.3 G/DL (3.5-5.0); CALCIUM, SERUM 7.3 MG/DL (8.5-10.4); CHLORIDE, SERUM 90 MMOL/L (96-112); DIRECT BILIRUBIN 0.4 MG/DL (0.0-0.4); INDIRECT BILIRUBIN(NOT ORDER) 0.5 MG/DL (0.1-0.9); PHOSPHORUS, SERUM 4.4 MG/DL (2.5-4.5); SGOT(AST) 15 U/L (5-40); SODIUM, SERUM 127 MMOL/L (135-148); TOTAL BILIRUBIN 0.9 MG/DL (0-1.2); TOTAL PROTEIN 7.5 G/DL (6.0-8.5)
[2017-03-12 05:43] LABS: ALKALINE PHOSPHATASE 91 U/L (45-117); BUN (BLOOD UREA NITROGEN) 50 MG/DL (6-23); CO2 (CARBON DIOXIDE) 22 MMOL/L (24-34); CREATININE 6.79 MG/DL (0.70-1.30); GFR AFRICAN AMERICAN 9 ML/MIN (>=60); GFR NON AFRICAN AMERICAN 8 ML/MIN (>=60); GLUCOSE, SERUM 155 MG/DL (60-99); POTASSIUM, SERUM 3.9 MMOL/L (3.5-5.3); SGPT(ALT) < 6 U/L (5-65)
[2017-03-13 06:56] LABS: BASOPHILS 0.1 %; BASOPHILS ABSOLUTE 0.01 10/3/uL (0.0-0.16); EOSINOPHILS 1.5 %; EOSINOPHILS ABSOLUTE 0.11 10/3/uL (0.0-0.53); HEMATOCRIT 27.8 % (40.0-51.0); HEMOGLOBIN 9.4 g/dL (13.6-17.8); IMMATURE GRANULOCYTES 0.9 %; IMMATURE GRANULOCYTES ABSOLUTE 0.07 10/3/uL (0.0-0.11); LYMPHOCYTES 10.5 %; LYMPHOCYTES ABSOLUTE 0.78 10/3/uL (0.67-4.30); MANUAL DIFF NO %; MEAN CORPUS HGB CONC 33.8 g/dL (32.0-36.0); MEAN CORPUSCULAR HEMOGLOB 28.8 pg (26.0-34.0); MEAN CORPUSCULAR VOLUME 85.3 fL (80-100); MEAN PLATELET VOLUME 10.1 fL (9.2-13.0); MONOCYTES 16.5 %; MONOCYTES ABSOLUTE 1.23 10/3/uL (0.21-1.20); NEUTROPHILS 70.5 %; NEUTROPHILS ABSOLUTE 5.24 10/3/uL (2.02-8.40); PLATELET COUNT 102 10/3/uL (150-400); RBC DISTRIBUTION WIDTH 16.5 % (12.0-16.0); RED CELL COUNT 3.26 10/6/uL (4.7-6.1); WHITE BLOOD CELLS 7.4 10/3/uL (4.5-10.5)
[2017-03-13 07:02] LABS: INTERNATIONAL NORMAL RATI 3.9 UNITS (-)
[2017-03-13 07:04] LABS: PROTIME (NOT ORD) 38.1 SEC (12.0-14.5)
[2017-03-13 07:11] LABS: ALBUMIN 3.3 G/DL (3.5-5.0); BUN (BLOOD UREA NITROGEN) 58 MG/DL (6-23); CALCIUM, SERUM 7.2 MG/DL (8.5-10.4); CHLORIDE, SERUM 88 MMOL/L (96-112); CO2 (CARBON DIOXIDE) 20 MMOL/L (24-34); CREATININE 8.09 MG/DL (0.70-1.30); GFR AFRICAN AMERICAN 7 ML/MIN (>=60); GFR NON AFRICAN AMERICAN 6 ML/MIN (>=60); GLUCOSE, SERUM 108 MG/DL (60-99); PHOSPHORUS, SERUM 3.7 MG/DL (2.5-4.5); POTASSIUM, SERUM 4.5 MMOL/L (3.5-5.3); SODIUM, SERUM 124 MMOL/L (135-148)
[2017-03-14 08:17] LABS: INTERNATIONAL NORMAL RATI 3.8 UNITS (-); PROTIME (NOT ORD) 37.2 SEC (12.0-14.5)
[2017-03-14 08:25] LABS: CALCIUM, SERUM 7.7 MG/DL (8.5-10.4); CHLORIDE, SERUM 94 MMOL/L (96-112); CO2 (CARBON DIOXIDE) 24 MMOL/L (24-34); GFR AFRICAN AMERICAN 9 ML/MIN (>=60); GFR NON AFRICAN AMERICAN 8 ML/MIN (>=60); GLUCOSE, SERUM 114 MG/DL (60-99); POTASSIUM, SERUM 4.2 MMOL/L (3.5-5.3)
[2017-03-14 08:26] LABS: BUN (BLOOD UREA NITROGEN) 41 MG/DL (6-23); CREATININE 6.93 MG/DL (0.70-1.30); SODIUM, SERUM 131 MMOL/L (135-148)
[2017-03-14 08:28] LABS: BASOPHILS 0.1 %; BASOPHILS ABSOLUTE 0.01 10/3/uL (0.0-0.16); EOSINOPHILS 2.2 %; EOSINOPHILS ABSOLUTE 0.21 10/3/uL (0.0-0.53); HEMATOCRIT 29.8 % (40.0-51.0); HEMOGLOBIN 9.8 g/dL (13.6-17.8); IMMATURE GRANULOCYTES 0.8 %; IMMATURE GRANULOCYTES ABSOLUTE 0.08 10/3/uL (0.0-0.11); LYMPHOCYTES 5.9 %; LYMPHOCYTES ABSOLUTE 0.57 10/3/uL (0.67-4.30); MEAN CORPUS HGB CONC 32.9 g/dL (32.0-36.0); MEAN CORPUSCULAR HEMOGLOB 28.6 pg (26.0-34.0); MEAN CORPUSCULAR VOLUME 86.9 fL (80-100); MEAN PLATELET VOLUME 9.5 fL (9.2-13.0); MONOCYTES 18.1 %; MONOCYTES ABSOLUTE 1.74 10/3/uL (0.21-1.20); NEUTROPHILS 72.9 %; NEUTROPHILS ABSOLUTE 7.02 10/3/uL (2.02-8.40); PLATELET COUNT 118 10/3/uL (150-400); RBC DISTRIBUTION WIDTH 16.9 % (12.0-16.0); RED CELL COUNT 3.43 10/6/uL (4.7-6.1); WHITE BLOOD CELLS 9.6 10/3/uL (4.5-10.5)
[2017-03-14 08:29] LABS: MANUAL DIFF NO %
[2017-03-15 08:25] LABS: BASOPHILS 0.1 %; BASOPHILS ABSOLUTE 0.01 10/3/uL (0.0-0.16); EOSINOPHILS 2.2 %; HEMOGLOBIN 10.2 g/dL (13.6-17.8); IMMATURE GRANULOCYTES 1.3 %; IMMATURE GRANULOCYTES ABSOLUTE 0.12 10/3/uL (0.0-0.11); LYMPHOCYTES ABSOLUTE 0.63 10/3/uL (0.67-4.30); MANUAL DIFF NO %; MEAN CORPUS HGB CONC 32.9 g/dL (32.0-36.0); MEAN CORPUSCULAR HEMOGLOB 28.7 pg (26.0-34.0); MEAN CORPUSCULAR VOLUME 87.1 fL (80-100); MEAN PLATELET VOLUME 10.1 fL (9.2-13.0); MONOCYTES 14.5 %; MONOCYTES ABSOLUTE 1.31 10/3/uL (0.21-1.20); NEUTROPHILS 74.9 %; NEUTROPHILS ABSOLUTE 6.76 10/3/uL (2.02-8.40); PLATELET COUNT 123 10/3/uL (150-400); RBC DISTRIBUTION WIDTH 17.2 % (12.0-16.0); RED CELL COUNT 3.56 10/6/uL (4.7-6.1)
[2017-03-15 08:32] LABS: INTERNATIONAL NORMAL RATI 3.1 UNITS (-)
[2017-03-15 08:33] LABS: PROTIME (NOT ORD) 31.6 SEC (12.0-14.5)
[2017-03-15 08:34] LABS: ALBUMIN 3.2 G/DL (3.5-5.0); CALCIUM, SERUM 7.9 MG/DL (8.5-10.4); CHLORIDE, SERUM 92 MMOL/L (96-112); CO2 (CARBON DIOXIDE) 25 MMOL/L (24-34); GFR AFRICAN AMERICAN 7 ML/MIN (>=60); GFR NON AFRICAN AMERICAN 6 ML/MIN (>=60); GLUCOSE, SERUM 96 MG/DL (60-99); PHOSPHORUS, SERUM 2.8 MG/DL (2.5-4.5); POTASSIUM, SERUM 4.3 MMOL/L (3.5-5.3); SODIUM, SERUM 129 MMOL/L (135-148)
[2017-03-15 08:41] LABS: BUN (BLOOD UREA NITROGEN) 48 MG/DL (6-23); CREATININE 8.33 MG/DL (0.70-1.30)
[2017-03-15] MEDS ORDERED: HALF81 PO (13:23)
[2017-03-15] MEDS ORDERED: COREG12 PO (13:25)
[2017-03-15] MEDS ORDERED: LIPITOR40 PO (13:25)
[2017-03-15] MEDS ORDERED: PERCOCET 10/3251 TAB PO (13:32)
[2017-03-15] MEDS ORDERED: CORDARONE PO (13:34)
[2017-06-12] MEDS ORDERED: JANTOVEN1 MG PO (12:19)
[2017-06-12] MEDS ORDERED: DSS PO (12:19)
[2017-06-12] MEDS ORDERED: KRISTALOSE20 GM PO (12:20)
[2017-06-12] MEDS ORDERED: PR25 PO (12:20)
[2017-06-12] MEDS ORDERED: PROTONIX PO (12:20)
[2017-06-13] MEDS ORDERED: TUMSROLL PO (05:55)
== END 2017-03-15 17:45 | disposition home health service (06) | DRG 219 ==
LOC: SDC/OF 04:41 → CVICU 12:37 → 5NO 03-11 15:59
PROVIDERS: Anesthesiology; Internal Medicine Cardiovascular Disease; Internal Medicine Interventional Cardiology; Internal Medicine Nephrology; Thoracic Surgery (Cardiothoracic Vascular Surgery)
PROC: B246ZZ4 Ultrasonography of Right and Left Heart, Transesophageal (ICD-10-PCS; 2017-03-07)
PROC: 02RG08Z Replacement of Mitral Valve with Zooplastic Tissue, Open Approach (ICD-10-PCS; principal; 2017-03-07 07:30)
PROC: 0PH000Z Insertion of Rigid Plate Internal Fixation Device into Sternum, Open Approach (ICD-10-PCS; 2017-03-07 07:30)
PROC: 5A1221Z Performance of Cardiac Output, Continuous (ICD-10-PCS; 2017-03-07 07:30)
PROC: 02L70CK Occlusion of Left Atrial Appendage with Extraluminal Device, Open Approach (ICD-10-PCS; 2017-03-07 07:30)
PROC: 5A1D60Z (ICD-10-PCS; 2017-03-08)
DX: I34.0 Nonrheumatic mitral (valve) insufficiency (principal); N18.6 End stage renal disease; I13.2 Hypertensive heart and chronic kidney disease with heart failure and with stage 5 chronic kidney disease, or end stage renal disease; I47.2 Ventricular tachycardia; I50.42 Chronic combined systolic (congestive) and diastolic (congestive) heart failure; J98.11 Atelectasis; E11.22 Type 2 diabetes mellitus with diabetic chronic kidney disease; Z99.2 Dependence on renal dialysis; E78.5 Hyperlipidemia, unspecified; J44.9 Chronic obstructive pulmonary disease, unspecified; D64.9 Anemia, unspecified
CPT/HCPCS: 31720; 36415; 71010; 71020; 80048; 80053; 80069; 80076; 82330; 82803; 82805; 82947; 82962; 83036; 83735; 84100; 84132; 84295; 85014; 85018; 85025; 85049; 85347; 85384; 85390; 85576; 85610; 85730; 86850; 86900; 86901; 86920; 88305; 93005; 93312; 93320; 93325; 94002; 94640; 94660; 94770; 97116-GP; 97162-GP; A9270-GY; C1713; C1751; C1769; C1894; G0257; G8978-CK-GP; G8979-CI-GP; J0282; J0690; J1160; J1644; J2150; J2250; J2260; J2370; J2405; J2597; J2720; J2930; J3010; J3370; J3475; P9035; P9045; P9047; P9059

== ENCOUNTER 2017-05-08 12:51 | Emergency (ER) | payer MEDICARE, OTHER ==
[2017-05-08 11:05] LABS: INTERNATIONAL NORMAL RATI 1.4 UNITS (-); PARTIAL THROMBO TIME 33.2 SEC (22.5-37.2); PROTIME (NOT ORD) 17.1 SEC (12.0-14.5)
[2017-05-08 11:12] LABS: A/G RATIO 0.8 (0.7-1.9); ALBUMIN 3.5 G/DL (3.5-5.0); ALKALINE PHOSPHATASE 101 U/L (45-117); CHLORIDE, SERUM 99 MMOL/L (96-112); GLOBULIN 4.5 G/DL (2.5-4.1); GLUCOSE, SERUM 97 MG/DL (60-99); SGOT(AST) 14 U/L (5-40); SGPT(ALT) 9 U/L (5-65); TOTAL BILIRUBIN 0.7 MG/DL (0-1.2)
[2017-05-08 11:13] LABS: BUN (BLOOD UREA NITROGEN) 19 MG/DL (6-23); CALCIUM, SERUM 9.6 MG/DL (8.5-10.4); CO2 (CARBON DIOXIDE) 30 MMOL/L (24-34); GFR AFRICAN AMERICAN 18 ML/MIN (>=60); GFR NON AFRICAN AMERICAN 15 ML/MIN (>=60); SODIUM, SERUM 138 MMOL/L (135-148)
[2017-05-08 11:15] LABS: LACTATE 2.6 MMOL/L (0.3-2.4)
[2017-05-08 11:20] LABS: BASOPHILS 0.6 %; BASOPHILS ABSOLUTE 0.04 10/3/uL (0.0-0.16); EOSINOPHILS 3.9 %; EOSINOPHILS ABSOLUTE 0.27 10/3/uL (0.0-0.53); HEMATOCRIT 31.1 % (40.0-51.0); IMMATURE GRANULOCYTES 0.3 %; IMMATURE GRANULOCYTES ABSOLUTE 0.02 10/3/uL (0.0-0.11); LYMPHOCYTES 16.9 %; LYMPHOCYTES ABSOLUTE 1.16 10/3/uL (0.67-4.30); MEAN CORPUS HGB CONC 32.2 g/dL (32.0-36.0); MEAN CORPUSCULAR HEMOGLOB 27.6 pg (26.0-34.0); MEAN CORPUSCULAR VOLUME 85.9 fL (80-100); MEAN PLATELET VOLUME 10.5 fL (9.2-13.0); MONOCYTES 6.5 %; MONOCYTES ABSOLUTE 0.45 10/3/uL (0.21-1.20); NEUTROPHILS 71.8 %; NEUTROPHILS ABSOLUTE 4.94 10/3/uL (2.02-8.40); PLATELET COUNT 151 10/3/uL (150-400); RBC DISTRIBUTION WIDTH 17.2 % (12.0-16.0); RED CELL COUNT 3.62 10/6/uL (4.7-6.1); WHITE BLOOD CELLS 6.9 10/3/uL (4.5-10.5)
[2017-05-08 11:24] LABS: ER CBC TAT 0 Hrs 26 Mins; MANUAL DIFF NO %
[2017-05-08 11:26] LABS: TROPONIN I 0.03 NG/ML (<0.05)
[~2017-05-08 12:51] MED LIST changes: +CORDARONE PO; +HALF81 PO
[2017-06-12] MEDS ORDERED: DSS PO (12:19)
[2017-06-12] MEDS ORDERED: JANTOVEN1 MG PO (12:19)
[2017-06-12] MEDS ORDERED: PR25 PO (12:20)
[2017-06-12] MEDS ORDERED: PROTONIX PO (12:20)
[2017-06-12] MEDS ORDERED: KRISTALOSE20 GM PO (12:20)
[2017-06-13] MEDS ORDERED: TUMSROLL PO (05:55)
== END 2017-05-08 14:50 | disposition home or self-care (01) ==
LOC: ER 12:51
PROVIDERS: Emergency Medicine
DX: I48.91 Unspecified atrial fibrillation (principal); J44.9 Chronic obstructive pulmonary disease, unspecified; I12.9 Hypertensive chronic kidney disease with stage 1 through stage 4 chronic kidney disease, or unspecified chronic kidney disease; N18.9 Chronic kidney disease, unspecified; E11.9 Type 2 diabetes mellitus without complications; Z95.1 Presence of aortocoronary bypass graft; Z86.73 Personal history of transient ischemic attack (TIA), and cerebral infarction without residual deficits; Z79.82 Long term (current) use of aspirin; Z79.899 Other long term (current) drug therapy
CPT/HCPCS: 71010; 80053; 83605; 83690; 84484; 85025; 85610; 85730; 87040; 93005; 96365; 96375; 99285; J0282